=== PATIENT | male | born 1945 | race Caucasian/White ===

== ENCOUNTER 2016-04-27 18:03 | Emergency (ER) | payer OTHER ==
[2016-04-27 18:55] LABS: BASOPHILS 0.3 % (0.0-2.0); HEMOGLOBIN 15.2 g/dL (13.5-17.5); IMMATURE GRANULOCYTES 0.3 % (0-5); LYMPHOCYTES 31.5 % (15-50); MCH 28.1 pg (26.0-34.0); MCV 85.2 fL (80.0-100.0); MEAN PLATELET VOLUME 11.2 fL (7.4-10.4); MONOCYTES 8.8 % (2-11); NEUTROPHILS 56.1 % (40-80); PLATELET COUNT 221 10x3/uL (130-400); RDW 14.4 % (11.5-14.5)
[2016-04-27 20:25] LABS: ALBUMIN 3.9 g/dL (3.4-5.0); ALKALINE PHOSPHATASE 60 U/L (46-116); ALT (SGPT) 61 U/L (10-68); BILIRUBIN - TOTAL 0.54 mg/dL (0.2-1.3); CALC OSMOLALITY 283 mosm/kg (275-300); CALCIUM 9.6 mg/dL (8.5-10.1); CARBON DIOXIDE 28.1 mmol/L (21.0-32.0); CHLORIDE - SERUM 103 mmol/L (98-107); CREATININE - SERUM 0.8 mg/dL (0.6-1.3); GLUCOSE 129 mg/dL (74-106); POTASSIUM - SERUM 4.2 mmol/L (3.5-5.1); PROTEIN - SERUM 6.4 g/dL (6.4-8.2); SODIUM 141 mmol/L (136-145); UREA NITROGEN 15 mg/dL (7-18); eGFR NON AFRICAN AMERICAN > 90 mL/min (90-120)
[2016-04-27 21:35] LABS: INR 1.03 (0.85-1.17); PROTIME 13.3 SECONDS (11.6-15.0)
[2016-04-27 21:53] LABS: CKMB 0.6 U/L (0.0-3.6); CREATINE KINASE 102 UL (21-232); MAGNESIUM - SERUM 1.7 mg/dL (1.8-2.4); PRO BNP 58 pg/mL (0-125)
[2016-04-27 21:54] LABS: TROPONIN-I < 0.017 ng/mL (0.000-0.060)
== END 2016-04-27 23:07 | disposition home or self-care (01) ==
LOC: D.ER 18:03
PROVIDERS: Emergency Medicine Emergency Medical Services; Nurse Practitioner Family
DX: I10 Essential (primary) hypertension (principal); R51 Headache; E11.9 Type 2 diabetes mellitus without complications